=== PATIENT | male | born 1975 | race American Indian/Alaskan Native ===

== ENCOUNTER 2016-09-08 22:29 | Emergency (ER) | payer BC ==
--- NOTE | 2016-09-08 23:37 | C.PDOC ---
History Of Present Illness The patient, a 40 y/o male, presents to the ED for evaluation of left-sided facial swelling which began this morning. Patient reports a history of an allergic reaction with lip swelling in Jun 2014. Patient denies facial droop, slurred speech, or difficulty with eating/drinking. Time Seen by Provider: 09/08/16 22:45 Chief Complaint (Nursing): Weakness/Neurological Deficit History Per: Patient History/Exam Limitations: no limitations Onset/Duration Of Symptoms: Hrs Current Symptoms Are (Timing): Still Present Associated Symptoms Preceding Syncopal Episode: No Predromal Symptoms (Sudden Onset) Seizure Or Post-ictal Symptoms: None Fall Associated With With Symptoms: No Additional History Per: Patient - Symptoms Of CVA Associated Symptoms: denies: Impaired Speech Past Medical History Reviewed: Historical Data, Nursing Documentation, Vital Signs Vital Signs: Last Vital Signs Temp 98.6 F 09/08/16 22:34 Pulse 94 H 09/08/16 22:34 Resp 16 09/08/16 22:34 BP 155/77 H 09/08/16 22:34 Pulse Ox 99 09/08/16 23:40 - Medical History PMH: No Chronic Diseases Surgical History: Cholecystectomy Family History: States: Unknown Family Hx - Social History Hx Tobacco Use: Yes (cigar) Hx Alcohol Use: Yes Hx Substance Use: No - Immunization History Hx Influenza Vaccination: Yes Hx Pneumococcal Vaccination: No Review Of Systems Except As Marked, All Systems Reviewed And Found Negative. Neurological: Positive for: Other (+left-sided facial swelling. no facial droop) . Negative for: Change in Speech Physical Exam - Physical Exam Appears: Non-toxic, No Acute Distress Skin: Normal Color, Warm, Dry Head: Atraumatic, Normacephalic, Swelling (mild to left cheek ) Eye(s): bilateral: Normal Inspection, PERRL, EOMI Ear(s): Left: Normal, Right: TM Obscured By Wax Oral Mucosa: Moist Teeth: No Normal Dentition (poor dentition in left upper molar ) Neck: Supple Chest: Symmetrical, No Deformity, No Tenderness Cardiovascular: Rhythm Regular, No Murmur Respiratory: Normal Breath Sounds, No Rales, No Rhonchi, No Wheezing Back: Normal Inspection Extremity: Normal ROM, Capillary Refill (less than 2 seconds ) Neurological/Psych: Oriented x3, Normal Speech, Normal Cognition, Other (no focal deficits ) Gait: Steady ED Course And Treatment O2 Sat by Pulse Oximetry: 99 (on RA) Pulse Ox Interpretation: Normal Progress Note: Patient received Benadryl PO, Pepcid PO, and Prednisone PO and reassurance of LOW probability of neurological deficit. Medical Decision Making Medical Decision Making: mild (if any) L cheeck swelling, no facial droop, ? related to poor L upper molar dentition. Pt and family eloped from ED approx 2330- approx 45 min after meds given Disposition Doctor Will See Patient In The: Office - Disposition Disposition: ELOPEMENT - ER ONLY Disposition Time: 23:30 Condition: GOOD - Clinical Impression Clinical Impression: Swelling of left side of face - Scribe Statement The provider has reviewed the documentation as recorded by the Scribe (Renata Delarosa) Provider Attestation: All medical record entries made by the Scribe were at my direction and personally dictated by me. I have reviewed the chart and agree that the record accurately reflects my personal performance of the history, physical exam, medical decision making, and the department course for this patient. I have also personally directed, reviewed, and agree with the discharge instructions and disposition.
[2016-09-09 00:01] VITALS: BP 141/72; PULSE 88; RESP 20; TEMP 98
[2016-09-09 00:06] VITALS: O2SAT 99
== END 2016-09-09 00:09 | disposition left against medical advice (07) ==
LOC: C.ER 22:29
DX: R22.0 Localized swelling, mass and lump, head (principal)